=== PATIENT | female | born 2000 | race Two or more races ===

== ENCOUNTER 2022-01-10 23:27 | Emergency (ER) | payer OTHER ==
[~2022-01-10] VITALS: Ht 160 cm; Wt 75.0 kg
[2022-01-10 23:51] LABS: COVID AG,FIA SOURCE NASAL SWAB
[2022-01-11 00:10] LABS: INFLUENZA TYPE B NEGATIVE FOR TYPE B (NEGATIVE)
[2022-01-11 00:19] LABS: INFLUENZA TYPE A POSITIVE FOR TYPE A (NEGATIVE)
[2022-01-11] MEDS ORDERED: BENZ-70 PO (00:28)
[2022-01-11] MEDS ORDERED: IBUP-2070 PO (00:28)
[2022-01-11] MEDS ORDERED: ONDA-104 PO (00:28)
[2022-01-11 00:40] VITALS: BP 112/68
[2022-01-11] MEDS ORDERED: ONDANSETRON HCL 4 MG TABLET PO ONE (00:45)
== END 2022-01-11 00:08 | disposition home or self-care (01) ==
LOC: EMS 23:28
DX: J10.1 Influenza due to other identified influenza virus with other respiratory manifestations (principal); Z20.822 Contact with and (suspected) exposure to COVID-19
CPT/HCPCS: 99283; 87426; 87804; Q0162